=== PATIENT | female | born 1995 | race Caucasian/White ===

== ENCOUNTER 2018-07-11 00:13 | Emergency (ER) | payer SELFPAY ==
[~2018-07-11] VITALS: Ht 162.6 cm; Wt 67.8 kg
[~2018-07-11 00:13] MED LIST: MACROBID100 MG PO; OB COMPLET2 PO; ZOFRAN ODT4 MG PO
[2018-07-11 00:28] VITALS: BP 103/64
[2018-07-11 01:44] LABS: URINE BILIRUBIN - DIPSTICK NEGATIVE (NEGATIVE); URINE BLOOD DIPSTICK NEGATIVE (NEGATIVE); URINE COLOR YELLOW; URINE GLUCOSE - DIPSTICK NEGATIVE (NEGATIVE); URINE KETONE TRACE mg/dL (NEGATIVE); URINE LEUK ESTERASE NEGATIVE (NEGATIVE); URINE NITRITE - DIPSTICK NEGATIVE (Negative); URINE PROTEIN - DIPSTICK 30 mg/dL (NEG-TRACE); URINE SPECIFIC GRAVITY >=1.030
[2018-07-11 02:10] LABS: URINE BACTERIA MODERATE hpf; URINE MUCUS MODERATE hpf (NONE-FEW); URINE SQUAMOUS EPITHELIAL CELL MODERATE EPI/hpf (0-FEW); URINE WBC 0-2 WBC/hpf (0-5)
[2018-07-11] MEDS ORDERED: ZOFRAN ODT4 MG PO (02:27)
== END 2018-07-11 01:40 | disposition home or self-care (01) | DRG 392 ==
LOC: ED 00:13
PROVIDERS: Emergency Medicine
DX: R11.10 Vomiting, unspecified (principal)

== ENCOUNTER 2018-07-26 12:59 | Emergency (ER) | payer SELFPAY ==
[~2018-07-26] VITALS: Ht 162.6 cm; Wt 67.3 kg
[2018-07-26 13:54] LABS: URINE BILIRUBIN - DIPSTICK NEGATIVE (NEGATIVE); URINE BLOOD DIPSTICK TRACE-LYSED (NEGATIVE); URINE COLOR YELLOW; URINE GLUCOSE - DIPSTICK NEGATIVE (NEGATIVE); URINE KETONE TRACE mg/dL (NEGATIVE); URINE LEUK ESTERASE NEGATIVE (NEGATIVE); URINE NITRITE - DIPSTICK NEGATIVE (Negative); URINE PH 6.5 (4.5-8.0); URINE PROTEIN - DIPSTICK NEGATIVE (NEG-TRACE); URINE SPECIFIC GRAVITY 1.015
[2018-07-26] MEDS ORDERED: ZOFRAN4 MG/TAB PO (14:22)
[2018-07-26 14:36] VITALS: BP 111/63
== END 2018-07-26 14:50 | disposition home or self-care (01) | DRG 392 ==
LOC: ED 12:59
DX: R11.2 Nausea with vomiting, unspecified (principal)

== ENCOUNTER 2019-03-01 20:09 | Emergency (ER) | payer SELFPAY ==
[~2019-03-01] VITALS: Ht 162.6 cm; Wt 79.0 kg
[~2019-03-01 20:09] MED LIST changes: +ZOFRAN4 MG/TAB PO
[2019-03-01 21:35] VITALS: BP 113/77
== END 2019-03-01 21:40 | disposition home or self-care (01) | DRG 153 ==
LOC: ED 20:09
DX: J02.9 Acute pharyngitis, unspecified (principal)

== ENCOUNTER 2019-12-20 00:01 | Emergency (ER) | payer SELFPAY ==
[~2019-12-20] VITALS: Ht 162.6 cm; Wt 81.6 kg
[2019-12-20 01:50] LABS: HEMATOCRIT 40.1 % (37.0-47.0); HEMOGLOBIN 13.2 g/dl (12.0-16.0); IMMATURE GRANULOCYTES 0.2 % (0.0-5.0); MEAN CELL VOLUME 92.6 fL CALC (80.0-100.0); MEAN CORPUSCULAR HGB 30.5 pG CALC (26.0-32.0); MEAN CORPUSCULAR HGB CONC 32.9 g/dL CAL (32.0-36.0); NEUT# 7.32 thou/uL (2.00-7.15); RED BLOOD COUNT 4.33 mill/uL (4.20-5.60); RED CELL DISTRI WIDTH 11.9 % (11.5-15.5)
[2019-12-20 02:03] LABS: URINE BLOOD DIPSTICK NEGATIVE (NEGATIVE); URINE COLOR YELLOW; URINE GLUCOSE - DIPSTICK NEGATIVE (NEGATIVE); URINE KETONE >=80 mg/dL (NEGATIVE); URINE LEUK ESTERASE NEGATIVE (NEGATIVE); URINE NITRITE - DIPSTICK NEGATIVE (Negative); URINE PROTEIN - DIPSTICK TRACE mg/dL (NEG-TRACE)
[2019-12-20 02:07] LABS: URINE BILIRUBIN - DIPSTICK SMALL (NEGATIVE)
[2019-12-20 02:11] LABS: ALBUMIN 5.1 g/dL (3.2-5.0); ALKALINE PHOSPHATASE 71 u/l (38-126); ANION GAP 14 (6-22 (CALC)); BILIRUBIN, TOTAL 0.7 mg/dL (0.0-1.4); BUN 8 mg/dL (7-17); BUN/CREATININE RATIO 15 (12-20 (CALC)); CARBON DIOXIDE 26 mmol/l (22-30); CHLORIDE 103 mmol/l (95-108); CREATININE 0.6 mg/dL (0.5-1.0); GFR > 60 ML/MIN (>=60 (CALC)); GFR FOR AFR.AMER. > 60 ML/MIN (>=60 (CALC)); POTASSIUM 3.6 mmol/l (3.5-5.1); SGOT/AST 27 u/l (14-36); SODIUM 139 mmol/l (137-146); TOTAL PROTEIN 8.2 g/dL (6.3-8.2)
[2019-12-20] MEDS ORDERED: ONDANSETRON4 MG PO (02:39)
[2019-12-20 02:54] VITALS: BP 110/78
== END 2019-12-20 03:00 | disposition home or self-care (01) | DRG 103 ==
LOC: ED 00:01
DX: G43.909 Migraine, unspecified, not intractable, without status migrainosus (principal)

== ENCOUNTER 2020-07-27 00:08 | Emergency (ER) | payer SELFPAY ==
[~2020-07-27] VITALS: Ht 162.6 cm; Wt 65.9 kg
[~2020-07-27 00:08] MED LIST changes: +ONDANSETRON4 MG PO
[2020-07-27 00:11] VITALS: BP 107/64
[2020-07-27] MEDS ORDERED: STERAPRED DS10 MG PO (00:57)
== END 2020-07-27 01:10 | disposition home or self-care (01) | DRG 156 ==
LOC: ED 00:08
DX: H92.02 Otalgia, left ear (principal); M54.2 Cervicalgia; J02.9 Acute pharyngitis, unspecified

== ENCOUNTER 2020-08-05 08:34 | Emergency (ER) | payer SELFPAY ==
[~2020-08-05] VITALS: Ht 162.6 cm; Wt 63.6 kg
[~2020-08-05 08:34] MED LIST changes: +STERAPRED DS10 MG PO
[2020-08-05 09:47] LABS: IMMATURE GRANULOCYTES 0.5 % (0.0-5.0); MEAN CELL VOLUME 93.2 fL CALC (80.0-100.0); MEAN CORPUSCULAR HGB 30.6 pG CALC (26.0-32.0); MEAN CORPUSCULAR HGB CONC 32.9 g/dL CAL (32.0-36.0); NEUT# 19.48 thou/uL (2.00-7.15); RED BLOOD COUNT 5.29 mill/uL (4.20-5.60); RED CELL DISTRI WIDTH 12.4 % (11.5-15.5)
[2020-08-05 09:54] LABS: URINE BILIRUBIN - DIPSTICK NEGATIVE (NEGATIVE); URINE BLOOD DIPSTICK SMALL (NEGATIVE); URINE COLOR YELLOW; URINE GLUCOSE - DIPSTICK NEGATIVE (NEGATIVE); URINE KETONE TRACE mg/dL (NEGATIVE); URINE LEUK ESTERASE NEGATIVE (NEGATIVE); URINE NITRITE - DIPSTICK NEGATIVE (Negative); URINE PROTEIN - DIPSTICK TRACE mg/dL (NEG-TRACE); URINE SPECIFIC GRAVITY >=1.030; URINE UROBILINOGEN - DIPSTICK 0.2 E.U./dL (0.2)
[2020-08-05 09:54] LABS: HCG SERUM/URINE (NEG/POS) NEGATIVE (NEGATIVE)
[2020-08-05 09:57] LABS: HEMATOCRIT 49.3 % (37.0-47.0); HEMOGLOBIN 16.2 g/dl (12.0-16.0)
[2020-08-05 10:04] LABS: URINE RBC 0-2 RBC/hpf (0-5); URINE SQUAMOUS EPITHELIAL CELL FEW EPI/hpf (0-FEW)
[2020-08-05 10:06] LABS: ALBUMIN 5.5 g/dL (3.2-5.0); ALKALINE PHOSPHATASE 69 u/l (38-126); ANION GAP 17 (6-22 (CALC)); BILIRUBIN, TOTAL 0.8 mg/dL (0.0-1.4); BUN 15 mg/dL (7-17); BUN/CREATININE RATIO 24 (12-20 (CALC)); CARBON DIOXIDE 26 mmol/l (22-30); CHLORIDE 98 mmol/l (95-108); CREATININE 0.6 mg/dL (0.5-1.0); GFR > 60 ML/MIN (>=60 (CALC)); GFR FOR AFR.AMER. > 60 ML/MIN (>=60 (CALC)); LIPASE 34 u/l (23-300); POTASSIUM 4.3 mmol/l (3.5-5.1); SGOT/AST 22 u/l (14-36); SODIUM 137 mmol/l (137-146)
[2020-08-05] MEDS ORDERED: ONDANSETRON4 MG PO (11:15)
[2020-08-05 11:51] VITALS: BP 94/56
== END 2020-08-05 12:15 | disposition home or self-care (01) | DRG 392 ==
LOC: ED 08:34
PROVIDERS: Family Medicine
DX: R11.2 Nausea with vomiting, unspecified (principal); D72.828 Other elevated white blood cell count; Z20.822 Contact with and (suspected) exposure to COVID-19

== ENCOUNTER 2020-12-04 16:16 | Emergency (ER) | payer MEDICAID ==
[~2020-12-04] VITALS: Ht 162.6 cm; Wt 64.0 kg
[2020-12-04] MEDS ORDERED: REGLAN10 MG PO (16:29)
[2020-12-04 16:41] VITALS: BP 107/57
== END 2020-12-04 16:49 | disposition home or self-care (01) ==
LOC: ED 16:16
DX: O21.9 Vomiting of pregnancy, unspecified (principal); Z3A.01 Less than 8 weeks gestation of pregnancy

== ENCOUNTER 2020-12-10 20:49 | Emergency (ER) | payer MEDICAID ==
[~2020-12-10] VITALS: Ht 162.6 cm; Wt 66.0 kg
[~2020-12-10 20:49] MED LIST changes: +REGLAN10 MG PO
[2020-12-10 21:51] LABS: IMMATURE GRANULOCYTES 0.2 % (0.0-5.0); MEAN CELL VOLUME 92.5 fL CALC (80.0-100.0); MEAN CORPUSCULAR HGB 30.9 pG CALC (26.0-32.0); MEAN CORPUSCULAR HGB CONC 33.4 g/dL CAL (32.0-36.0); NEUT# 5.57 thou/uL (2.00-7.15); RED BLOOD COUNT 4.24 mill/uL (4.20-5.60); RED CELL DISTRI WIDTH 11.9 % (11.5-15.5)
[2020-12-10 21:52] LABS: HEMATOCRIT 39.2 % (37.0-47.0); HEMOGLOBIN 13.1 g/dl (12.0-16.0)
[2020-12-10 21:54] LABS: URINE BILIRUBIN - DIPSTICK NEGATIVE (NEGATIVE); URINE BLOOD DIPSTICK NEGATIVE (NEGATIVE); URINE COLOR YELLOW; URINE GLUCOSE - DIPSTICK NEGATIVE (NEGATIVE); URINE KETONE NEGATIVE (NEGATIVE); URINE LEUK ESTERASE NEGATIVE (NEGATIVE); URINE PH 6.5 (4.5-8.0); URINE PROTEIN - DIPSTICK NEGATIVE (NEG-TRACE); URINE SPECIFIC GRAVITY 1.025
[2020-12-10 22:00] LABS: URINE NITRITE - DIPSTICK NEGATIVE (Negative)
[2020-12-10] MEDS ORDERED: LORTAB 1010 MG PO (22:10)
[2020-12-10] MEDS ORDERED: AMOXICILLIN500 MG PO (22:10)
[2020-12-10 22:12] LABS: ALBUMIN 4.4 g/dL (3.2-5.0); ALKALINE PHOSPHATASE 40 u/l (38-126); AMYLASE 56 u/l (30-110); ANION GAP 12 (6-22 (CALC)); BUN 9 mg/dL (7-17); BUN/CREATININE RATIO 16 (12-20 (CALC)); CARBON DIOXIDE 26 mmol/l (22-30); CHLORIDE 99 mmol/l (95-108); CREATININE 0.5 mg/dL (0.5-1.0); GFR > 60 ML/MIN (>=60 (CALC)); GFR FOR AFR.AMER. > 60 ML/MIN (>=60 (CALC)); LIPASE 59 u/l (23-300); POTASSIUM 3.8 mmol/l (3.5-5.1); SGOT/AST 22 u/l (14-36); SODIUM 133 mmol/l (137-146); TOTAL PROTEIN 7.4 g/dL (6.3-8.2)
[2020-12-10 22:13] LABS: BILIRUBIN, TOTAL 0.3 mg/dL (0.0-1.4)
[2020-12-10] MEDS ORDERED: PHENERGAN25 MG RE (22:52)
[2020-12-10 23:09] VITALS: BP 100/56
== END 2020-12-10 23:08 | disposition home or self-care (01) ==
LOC: ED 20:49
PROVIDERS: Emergency Medicine
DX: O21.9 Vomiting of pregnancy, unspecified (principal); Z3A.00 Weeks of gestation of pregnancy not specified; Z20.822 Contact with and (suspected) exposure to COVID-19